=== PATIENT | male | born 1990 | race Caucasian/White ===

== ENCOUNTER 2019-11-17 17:56 | Emergency (ER) | payer OTHER, SELFPAY ==
[2019-11-17 17:57] VITALS: BP 129/87; PULSE 96; RESP 16; TEMP 36.6; O2SAT 97; BMI 26.0
--- NOTE | 2019-11-17 18:20 | ED.VIS.GEN ---
History of Present Illness Chief Complaint: Nausea/Vomiting Informant: Patient Onset: Today Narrative: Patient reports nausea and vomiting today after drinking too much tequila last evening. He has not been able to keep down any fluids or medications. He has not been urinating. He denies focal abdominal pain, stating that his abdomen just feels queasy. Past Medical History - Allergies and Home Meds Allergies/Adverse Reactions: Allergies No Known Allergies Allergy (Verified 11/17/19 17:59) Primary Care Physician: [facility] Doctor,Out of [NON-STAFF] - Past Medical History: None Review of Systems General: Denies: Chills, Fever Eyes: Denies: Visual changes - bilaterally ENT: Denies: Bilateral ear pain Cardiovascular: Denies: Chest pain Respiratory: Denies: Dyspnea, Cough Gastrointestinal: Reports: Nausea, Vomiting. Denies: Diarrhea Genitourinary: Reports: - - Decreased urine output Musculoskeletal: Denies: Extremity Pain Skin: Denies: Rash Hematologic: Denies: Easy bruising, Easy bleeding Allergy: Denies: Uticaria Physical Exam Vital Signs/Narrative: Vital Signs Temp Pulse Resp BP Pulse Ox 11/17/19 17:57 97.8 F 96 16 129/87 H 97 Inital Vital Signs reviewed: Yes General: Well nourished, Well developed Head: Normocephalic ENT: Dry mucous membranes Neck: Supple Cardiovascular: Regular rate, Regular rhythm Respiratory: No distress, CTA bilaterally Abdomen: Soft, Nontender Extremities: Nontender Skin: Normal color Neurological: Alert, Oriented x3 Psychological: Normal affect Diagnostic/Tx/Re-eval Laboratory Results 11/17/19 18:45 Sodium 142 Potassium 3.8 Chloride 107 Carbon Dioxide 22.0 Anion Gap 13 BUN 21 H Creatinine 1.17 Estim Creat Clear Calc 81.77 Est GFR (MDRD) Af Amer 95 Est GFR (MDRD) Non-Af 79 BUN/Creatinine Ratio 17.9 Glucose 71 L Calcium 9.5 - Medical Decision Making Patient was given IV fluids, Protonix, and Zofran. On repeat evaluation he feels significantly improved. He is able to tolerate p.o. He will be given a prescription for Zofran at home. ED Disposition - Plan for ED Patient: Disposition: Home or Assisted Living Diagnosis: Vomiting Instructions: ED Nausea Vomiting Adult Prescriptions: Ondansetron [Zofran Odt] 4 mg PO Q8H PRN PRN #10 tab PRN Reason: Nausea Transmission Status: Pending to [facility] Referrals: [facility] Doctor,Out of [NON-STAFF] -
[2019-11-17] MEDS: 0.9% Normal Saline 1,000 ML 1000 ML IV ×2 (18:42→19:49)
[2019-11-17] MEDS: Ondansetron 4 MG/2 ML Vial IV (18:42)
[2019-11-17 19:17] LABS: Anion Gap 13 (5-15); BUN 21 mg/dL (7-18); BUN/Creat Ratio 17.9 RATIO (10-20); Calcium,Total 9.5 mg/dL (8.5-10.1); Chloride 107 mmol/L (98-107); Creatinine, Serum 1.17 mg/dL (0.70-1.30); EST Glomerular Filtration Rate 79 mL/min (>60); Est Glom Filt Rate - Afr Amer 95 mL/min (>60); Estimated Creatinine Clearance 81.77 ml/min; Glucose 71 mg/dL (74-106); Potassium 3.8 mmol/L (3.5-5.1); Sodium Level 142 mmol/L (136-145)
--- NOTE | 2019-11-17 19:23 | CM.ED ---
Social Work Consult: No PCP Informant: Self Referral Met with patient in room. Introduced self and social economist role. Patient agreeable to speaking with this social economist. Patient confirms to not have a PCP. Patient is open to this social economist providing patient with list of PCP. Patient open to conversation about importance/value of having a PCP. Patient voicing plan to set a PCP up. Patient denies any community concerns. Patient reports to hope to start school at [employer] next year and currently works at the [employer] as a cook. Patient reports to have transportation to home. Patient denies any needs. Kellee Chang MSW, TOPHER
[2019-11-17 20:05] VITALS: PULSE 80; RESP 16; O2SAT 98
== END 2019-11-17 20:06 | disposition home or self-care (01) ==
PROVIDERS: Emergency Provider Emergency Medicine
DX: R11.2 Nausea with vomiting, unspecified (principal)
CPT/HCPCS: 80048; 96361; 96365; 96375; 99281; 99284; J7030; J2405

== ENCOUNTER 2020-11-13 17:36 | Emergency (ER) | payer OTHER, SELFPAY ==
[2020-11-13 17:38] VITALS: BP 144/97; PULSE 94; RESP 14; TEMP 36.1; O2SAT 98; BMI 24.6
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
== END 2020-11-13 19:07 | disposition home or self-care (01) ==
PROVIDERS: Emergency Provider Emergency Medicine
DX: F41.0 Panic disorder [episodic paroxysmal anxiety] (principal); F17.210 Nicotine dependence, cigarettes, uncomplicated; F32.A Depression, unspecified
CPT/HCPCS: 99282

== ENCOUNTER 2021-06-21 16:51 | Emergency (ER) | payer BC, SELFPAY ==
[2021-06-21 16:55] VITALS: BP 137/76; PULSE 90; RESP 18; TEMP 36.2; O2SAT 97; BMI 25.7
[2021-06-21 18:02] VITALS: BP 156/71; PULSE 83; RESP 18; O2SAT 97
--- NOTE | 2021-06-21 18:35 | EDS_ITS ---
HPI History of Present Illness Chief Complaint: Nausea/Vomiting Informant: patient Onset/Context/Timing Onset: Days Context: Gradual Onset Timing: Continuous Quality: Confusion, anxiety Location: Generalized Worsened by: Drinking water Relieved by: Nothing Narrative Narrative: Patient presents with nausea, vomiting, and possible dehydration. Patient states he had been drinking alcohol for the last 3 days. Patient states he started having nausea and vomiting today. Patient states it is worse with trying to drink any water. Patient denies any hematemesis or coffee-ground emesis. Patient denies any diarrhea, melena, or hematochezia. Patient states he also had a panic attack earlier today. Patient states he also felt confused earlier today. Patient admits to some subjective chills. Patient denies any fevers. Patient does admit to some mild dysuria. [facility] Medical History Depression Home Medications ondansetron 4 mg PO Q8H PRN PRN #10 tab 06/21/21 [Rx Last Taken Unknown] Allergy/AdvReac Type Severity Reaction Status Date / Time No Known Allergies Allergy Verified 06/21/21 16:57 Surgical History no surgical history no surgical history Social History Smoking Status: Current some day smoker tobacco type: cigarettes substance use type: does not use ROS ROS ED Constitutional Constitutional ED: Reports chills and subjective; Denies fever(s) Eyes Eyes: Denies blurry vision or change in vision ENT ENT ED: Reports rhinorrhea and sore throat Cardiovascular Cardiovascular: Denies chest pain or palpitations Respiratory/Chest Respiratory/Chest: Denies cough or dyspnea Gastrointestinal Gastrointestinal: Reports nausea and vomiting; Denies diarrhea or melena Genitourinary Genitourinary ED: Reports dysuria; Denies hematuria Musculoskeletal Musculoskeletal: Denies back pain or neck pain Integumentary Denies abscess or rash Neurologic Neurologic: Denies headache(s) or weakness Allergic/Immunologic Allergic/Immunologic ED: Denies mouth swelling or urticaria EXAM Physical Exam Const Vital Signs: 06/21/21 16:55 06/21/21 17:59 06/21/21 18:02 Temperature 97.2 F L Temperature Source Temporal Pulse Rate 90 83 Respiratory Rate 18 18 Blood Pressure 137/76 H 156/71 H Blood Pressure Mean 96 99 Pulse Ox 97 97 Oxygen Delivery Method Room Air Room Air Room Air 06/21/21 20:07 Temperature Temperature Source Pulse Rate Respiratory Rate 16 Blood Pressure Blood Pressure Mean Pulse Ox Oxygen Delivery Method Positive well nourished and well developed General Appearance ED: well developed HEENT Reports moist mucous membranes Neck supple and no JVD Resp normal respiratory effort and clear to auscultation bilaterally Cardio regular rate, regular rhythm and no murmurs GI normal to inspection, nondistended, normoactive bowel sounds Palpation: soft and tender epigastric, LLQ, RLQ, LUQ, RUQ, periumbilical and suprapubic; Negative for guarding or rebound tenderness present Extremity normal to inspection General Extremety ED: Negative for edema or tenderness General Extremity: Negative for edema Neuro oriented x3, CN's II-XII intact bilaterally and no sensory deficits noted Sensorium / Orientation: alert Motor Exam: strength 5/5 throughout Psych mental status grossly normal Skin no rashes or lesions noted MDM MDM MDM Narrative Medical decision making narrative: Patient was given IV fluids and Zofran here. CBC was within normal limits. Comprehensive metabolic profile was within normal limits. Patient was feeling better on reevaluation. Patient was given a prescription for Zofran. Patient was instructed to start with fluids and advance his diet as tolerated. Patient was instructed to follow-up with his primary care physician in 5 to 7 days. Patient was instructed return if worse in any way. Patient understood and was agreeable with the plan. All questions were answered. Lab Data Attestation: I reviewed the patient's lab results. Labs: Laboratory Results - last 24 hr 06/21/21 06/21/21 18:50 18:50 WBC 9.7 RBC 5.25 Hgb 16.2 Hct 47.0 MCV 89.5 MCH 30.9 MCHC 34.5 RDW Std Deviation 39.5 RDW Coeff of Veronica 12.1 Plt Count 298 MPV 8.3 Immature Gran % (Auto) 0.400 Neut % (Auto) 84.7 H Lymph % (Auto) 8.2 L [place] % (Auto) 6.3 Eos % (Auto) 0.0 Baso % (Auto) 0.4 Absolute Neuts (auto) 8.3 H Absolute Lymphs (auto) 0.80 L Nucleated RBC % 0 Sodium 139 Potassium 3.8 Chloride 101 Carbon Dioxide 29.0 Anion Gap 9 BUN 15 Creatinine 1.18 Estim Creat Clear Calc 80.35 Est GFR (MDRD) Af Amer 93 Est GFR (MDRD) Non-Af 77 BUN/Creatinine Ratio 12.7 Glucose 102 Calcium 9.4 Total Bilirubin 0.50 AST 28 ALT 29 Alkaline Phosphatase 63 Total Protein 8.0 Albumin 4.4 Globulin 3.6 Albumin/Globulin Ratio 1.2 Discharge Plan Triage Chief Complaint: Nausea/Vomiting ED Provider: Danial Mascorro Dx/Rx/DC Orders Clinical Impression: Nausea and vomiting Instructions: ED Vomiting (Adult) Prescriptions: New ondansetron [ondansetron] 4 MG tablet 4 mg PO Q8H PRN PRN (Reason: Nausea) Qty: 10 RF: 0 Primary Care Provider: Care Physician,No Primary Referrals: Shady See MD [STAFF PHYSICIAN] - 5-7 Days Care Physician,No Primary [Primary Care Provider] - Disposition Disposition: Home, Self Care
[2021-06-21 19:02] LABS: Absolute Neutrophil Count 8.3 X10^3/uL (2.0-7.7); Basophil# 0.04 X10^3/uL; Basophil% 0.4 % (0-1); Hemoglobin 16.2 g/dL (13.0-16.5); Lymphocyte % 8.2 % (19-41); Mean Corp Hgb Conc 34.5 g/dL (32-36); Mean Corpuscular Hgb 30.9 pg (27.0-32.0); Mean Corpuscular Volume 89.5 fL (80-94); Mean Platelet Vol. 8.3 fl (6.2-12.0); Monocyte# 0.61 X10^3/uL; Monocyte% 6.3 % (0-10); NRBC Flagged by Analyzer 0 % (0-5); Neutrophil # 8.25 X10^3/uL (2.7-7.7); Neutrophil % 84.7 % (47-70); Platelet Count 298 K/mm3 (150-450); RBC Distribution Width CV 12.1 % (11.6-14.6); RBC Distribution Width SD 39.5 fl (35.1-43.9); Red Blood Count 5.25 M/mm3 (4.6-6.2); White Blood Count 9.7 K/mm3 (4.4-11.0)
[2021-06-21] MEDS: Ondansetron 4 MG/2 ML Vial IV (19:09)
[2021-06-21] MEDS: 0.9% Normal Saline 1,000 ML 1000 ML IV (19:09)
[2021-06-21 19:18] LABS: ALB/GLOB Ratio 1.2 RATIO (0.9-2.4); AST(SGOT) 28 U/L (15-37); Alanine Aminotransfer ALT/SGPT 29 U/L (16-61); Albumin, Serum 4.4 g/dL (3.2-5.0); Alkaline Phosphatase 63 U/L (45-117); Anion Gap 9 (5-15); BUN 15 mg/dL (7-18); BUN/Creat Ratio 12.7 RATIO (10-20); Calcium,Total 9.4 mg/dL (8.5-10.1); Chloride 101 mmol/L (98-107); Creatinine, Serum 1.18 mg/dL (0.70-1.30); EST Glomerular Filtration Rate 77 mL/min (>60); Est Glom Filt Rate - Afr Amer 93 mL/min (>60); Estimated Creatinine Clearance 80.35 ml/min; Globulin 3.6 g/dL (2.2-4.2); Glucose 102 mg/dL (74-106); Potassium 3.8 mmol/L (3.5-5.1); Sodium Level 139 mmol/L (136-145)
[2021-06-21 20:07] VITALS: RESP 16
[2021-06-21 20:55] VITALS: BP 136/81; PULSE 77; RESP 16; O2SAT 100
== END 2021-06-21 21:00 | disposition home or self-care (01) ==
PROVIDERS: Emergency Provider Emergency Medicine; Visit Provider Emergency Medicine
DX: R11.2 Nausea with vomiting, unspecified (principal); F17.210 Nicotine dependence, cigarettes, uncomplicated; F41.9 Anxiety disorder, unspecified; R41.0 Disorientation, unspecified; F32.A Depression, unspecified
CPT/HCPCS: 80053; 85025; 99283; J7030; J2405

== ENCOUNTER 2022-04-21 16:20 | Emergency (ER) | payer SELFPAY ==
[2022-04-21 16:20] VITALS: BP 135/75; PULSE 86; RESP 18; O2SAT 98
[2022-04-21 16:22] VITALS: BP 119/82; PULSE 90; RESP 16; TEMP 36.1; O2SAT 99
[2022-04-21 16:28] VITALS: BMI 28.0
--- NOTE | 2022-04-21 16:39 | CT_ITS ---
EXAM: CT HEAD WITHOUT INTRAVENOUS CONTRAST CLINICAL INDICATION: LOC, head trauma TECHNIQUE: Multiple axial images were obtained of the head without intravenous contrast. This CT exam was performed using one or more of the following dose reduction techniques: automated exposure control, adjustment of the mA and/or kV according to patient size, and/or use of iterative reconstruction technique. This report was created using [employer] report generation technology. RADIATION DOSE: CTDIvol = 44.99 mGy, DLP = 812.98 mGy-cm. COMPARISON: None. FINDINGS: BRAIN AND EXTRA-AXIAL SPACES: Unremarkable. No intra- or extra-axial hemorrhage. No evidence of acute infarct. No intracranial mass or mass effect. There is preservation of the naylor/white matter interface. Posterior fossa structures are unremarkable. Ventricles are appropriate for age. No hydrocephalus. Basal cisterns are patent. BONES/JOINTS: Unremarkable. No discrete lytic or blastic abnormalities. SOFT TISSUES: Moderate right parietal scalp hematoma. SINUSES: Unremarkable as visualized. Clear. MASTOID AIR CELLS: Unremarkable. Clear. ORBITS: Visualized globes, extraocular muscles, optic nerves and retrobulbar fat appear unremarkable. CT/Brain/Head without Contrast IMPRESSION: 1. Moderate right parietal scalp hematoma. 2. No acute intracranial abnormality. Electronically Signed: Masoud Ash MD at 17:49 EDT ,
--- NOTE | 2022-04-21 16:39 | CT_ITS ---
EXAM: CT CERVICAL SPINE WITHOUT INTRAVENOUS CONTRAST CLINICAL INDICATION: head trauma, neck pain TECHNIQUE: Helically acquired images were obtained of the cervical spine without intravenous contrast. 2D reformatted images were reviewed. This CT exam was performed using one or more of the following dose reduction techniques: automated exposure control, adjustment of the mA and/or kV according to patient size, and/or use of iterative reconstruction technique. This report was created using [employer] report generation technology. RADIATION DOSE: CTDIvol = 20.14 mGy, DLP = 433.78 mGy-cm. COMPARISON: None. FINDINGS: VERTEBRAE: Unremarkable. No fracture. No traumatic subluxation. No discrete lytic or blastic abnormality. Normal alignment. Normal craniocervical junction and cervicothoracic junction. DISCS/SPINAL CANAL/NEURAL FORAMINA: Unremarkable. Disc heights are preserved. No critical stenosis. SOFT TISSUES: Unremarkable. No prevertebral soft tissue swelling. LYMPH NODES: Unremarkable. No cervical adenopathy. LUNG APICES: Unremarkable as visualized. Clear. CT/Spine Cervical without Contras IMPRESSION: No evidence of acute cervical spinal fracture or spondylolisthesis. Electronically Signed: Masoud Ash MD at 17:50 EDT ,
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
--- NOTE | 2022-04-21 17:46 | ED.RN ---
PT REMOVED C COLLAR WHILE IN CT SCAN. 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
[2022-04-21] MEDS: Diphth,Pertuss(Acell),Tet Vac 0.5 ML Vial IM (18:14)
[2022-04-21] MEDS: Lidocaine 1% (20 ml mdv) 20 ML Vial 10 ML INFILT (18:15)
== END 2022-04-21 18:31 | disposition home or self-care (01) ==
PROVIDERS: Physician Assistant; Emergency Provider Student in an Organized Health Care Education/Training Program; Visit Provider Student in an Organized Health Care Education/Training Program
DX: S01.01XA Laceration without foreign body of scalp, initial encounter (principal); F10.129 Alcohol abuse with intoxication, unspecified; F17.210 Nicotine dependence, cigarettes, uncomplicated; S09.90XA Unspecified injury of head, initial encounter; V00.131A Fall from skateboard, initial encounter; Y90.8 Blood alcohol level of 240 mg/100 ml or more; Z23 Encounter for immunization
CPT/HCPCS: 12002; 70450; 72125; 82077; 90471; 90715; 99284

== ENCOUNTER 2024-06-29 19:12 | Emergency (ER) | payer OTHER, SELFPAY ==
[2024-06-29 19:13] VITALS: BP 144/92; PULSE 72; RESP 18; TEMP 36.5; O2SAT 96; BMI 30.9
--- NOTE | 2024-06-29 20:08 | EDS_ITS ---
HPI History of Present Illness Chief Complaint: Nausea/Vomiting Informant: patient Narrative Narrative: Presents with nausea and vomiting after waking up today. Drank heavily last night. Denies hematemesis. No diarrhea. Tried drinking water with melatonin and threw it up. Later drank Gatorade and threw it up. Previous similar symptoms with alcohol use in the past. No abdominal pain. No fever chills or sweats. No urinary symptoms. Denies any allergies. Prior similar symptoms: Yes PFSH PFSH Medical History Depression Home Medications ?Medication ?Instructions ?Recorded ?Last Taken ?Type ondansetron 4 mg disintegrating 4 mg PO Q8H PRN PRN Na usea #10 tabs 06/29/24 Unknown Rx tablet Allergy/AdvReac Type Severity Reaction Status Date / Time No Known Allergies Allergy Verified 06/29/24 19:15 Social History Smoking Status: Current every day smoker tobacco type: cigarettes substance use type: does not use ROS ROS ED Constitutional Constitutional ED: Denies fever(s) Cardiovascular Cardiovascular: Denies chest pain Respiratory/Chest Respiratory/Chest: Denies cough Gastrointestinal Gastrointestinal: Reports nausea and vomiting; Denies diarrhea Musculoskeletal Musculoskeletal: Denies none Integumentary Denies rash or wounds Neurologic Neurologic: Denies weakness EXAM Physical Exam Const Vital Signs: 06/29/24 19:13 06/29/24 21:00 06/29/24 21:00 Temperature 97.7 F L 98.0 F Temperature Source Oral Pulse Rate 72 74 74 Respiratory Rate 18 18 18 Blood Pressure 144/92 H 151/90 H 151/90 H Blood Pressure Mean 109 110 110 Pulse Ox 96 99 99 Oxygen Delivery Method Room Air Room Air Positive well nourished and well developed General Appearance ED: well developed HEENT HEENT Narrative: Mild dry mucosal membranes normocephalic and atraumatic Eyes General Eye ED: Yes normal appearance of both eyes Neck full ROM Resp normal respiratory effort and normal air movement Cardio regular rate and regular rhythm GI soft to palpation GI Narrative: No guarding or rebound. Nontender. Extremity normal to inspection and full ROM Neuro oriented x3 Skin no rashes or lesions noted and no wounds MDM MDM MDM Narrative Medical decision making narrative: Interventions / MDM: Differential diagnosis: Vomiting, dehydration Diagnosis considered but do not suspect: N/A My EKG interpretation: N/A Imaging independently reviewed and interpreted by myself: N/A External documents reviewed: N/A Test considered but not ordered:N/A ED course: Vital stable nontender abdomen. Vomiting after alcohol last night. There is mild dry mucosal membrane. IV established for fluids and Zofran. Will check electrolytes. Will reevaluate. 2131: Labs with normal electrolytes. Clinically feeling better. Is tolerating oral fluids. He will congeal oral hydration at home. Zofran sent to his pharmacy. Re-evaluation: stable Disposition discussed with patient/family/significant other: Case discussed with consulting clinician: N/A This note was generated with [employer] dictation software. It may contain incorrect words, spelling, and punctuation that were not noted in checking the note before signing. Lab Data Attestation: I reviewed the patient's lab results. Labs: Laboratory Results - last 24 hr 06/29/24 20:18 Sodium 141 Potassium 4.3 Chloride 100 Carbon Dioxide 27.2 Anion Gap 14 BUN 16 Creatinine 1.18 Estim Creat Clear Calc 89.76 Est GFR (MDRD) Non-Af 84 BUN/Creatinine Ratio 13.3 Glucose 116 H Calcium 9.5 Discharge Plan Triage Chief Complaint: Nausea/Vomiting ED Provider: Domenico Benitez Dx/Rx/DC Orders Clinical Impression: Vomiting, Dehydration Instructions: ED Dehydration (Adult), ED Vomiting (Adult) Prescriptions: New ondansetron 4 mg tablet,disintegrating 4 mg PO Q8H PRN PRN (Reason: Nausea) Qty: 10 0RF Primary Care Provider: Care Physician,No Primary Referrals: Care Physician,No Primary [Primary Care Provider] - Activity Restrictions/Additional Instructions: Your blood work with electrolytes are normal. Continue oral fluid hydration. Zofran as needed. Print Language: Greenlandic Disposition Disposition: Home, Self Care Discharge Date/Time: 06/29/24 21:49
[2024-06-29] MEDS: 0.9% Normal Saline (1000mL) 1,000 ML 1000 ML IV (20:16)
[2024-06-29] MEDS: Ondansetron 4 MG/2 ML Vial IV (20:28)
[2024-06-29 20:45] LABS: Anion Gap 14 (5-15); BUN 16 mg/dL (4-19); BUN/Creat Ratio 13.3 RATIO (10-20); Calcium,Total 9.5 mg/dL (7.6-11.0); Carbon Dioxide 27.2 mmol/L (21.0-32.0); Chloride 100 mmol/L (98-108); Creatinine, Serum 1.18 mg/dL (0.70-1.20); EST Glomerular Filtration Rate 84 (>60); Estimated Creatinine Clearance 89.76 ml/min (50-250); Glucose 116 mg/dL (70-99); Potassium 4.3 mmol/L (3.3-5.1); Sodium Level 141 mmol/L (133-145)
[2024-06-29 21:00] VITALS: BP 151/90; PULSE 74; RESP 18; TEMP 36.7; O2SAT 99
== END 2024-06-29 21:49 | disposition home or self-care (01) ==
PROVIDERS: Emergency Provider Emergency Medicine; Visit Provider Emergency Medicine
DX: R11.2 Nausea with vomiting, unspecified (principal); E86.0 Dehydration; F17.210 Nicotine dependence, cigarettes, uncomplicated
CPT/HCPCS: 80048; 96361; 96374; 99283; A4216; J2405